=== PATIENT | male | born 1970 | race Caucasian/White ===

== ENCOUNTER → 2016-08-01 | Outpatient (CLI) | payer BC ==
--- NOTE | 2016-08-01 13:10 | Diagnostic Imaging Report ---
INDICATION: Bilateral hand pain. Previous history of surgery. Comparison with 04/01/2009. FINDINGS: Right: There has been partial trapeziectomy at the right first metacarpocarpal joint. 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 Remainder of the wrist and hand shows very little change. Some osteoarthritic change noted along the first metacarpocarpal joint as well as the interphalangeal joints. Radiocarpal joint appears normal. Left: There has been trapeziectomy with interposition ligament reconstruction with anchor present along the base of the first metacarpal. Moderate degenerative changes are noted. The interphalangeal joints are well preserved. MP joints are well preserved. Radiocarpal joint appears mildly degenerated. IMPRESSION: 1. Bilateral first metacarpocarpal surgery as described with mild progressive degenerative changes noted since previous exam. Dictated by: Dictated on workstation # [id number]
== END ==
LOC: LAB 12:18
PROVIDERS: ATTEND Emergency Medicine
DX: M79.642 Pain in left hand (principal); M79.641 Pain in right hand; Z98.890 Other specified postprocedural states

== ENCOUNTER → 2016-08-02 | Outpatient (CLI) | payer BC ==
[2016-08-02 15:15] LABS: MEAN CORPUSCULAR HEMOGLOBIN 30.7 PG (26.0-34.0); MEAN CORPUSCULAR HGB CONC 33.2 g/dL (31.0-37.0); MEAN CORPUSCULAR VOLUME 92 FL (80-100); MEAN PLATELET VOLUME 9.6 FL (6.0-9.5); PLATELET COUNT 230 10^3uL (150-450)
[2016-08-02 15:46] LABS: ALBUMIN 4.3 g/dL (3.4-5.0); ANION GAP 12.7 MEQ/L (3-15); CALCULATED IONIZED CALCIUM 3.8 mg/dL (3.8-4.6); TOTAL PROTEIN 7.6 g/dL (6.4-8.5)
[2016-08-02 15:57] LABS: BAND NEUTROPHILS % 0 % (0-6); EOSINOPHILS % 5 % (0-4); LYMPHOCYTES # 2.4 #; MONOCYTES # 0.3 #; MONOCYTES % 9 % (3-11); RBC MORPH NORMAL (NORMAL); SEGMENTED NEUTROPHILS % 23 % (51-67); TOTAL CELLS COUNTED 100
[2016-08-02 15:58] LABS: ERYTHROCYTE SEDIMENTATION RT* 8 mm/hr (0-12)
== END ==
LOC: LAB 14:58
PROVIDERS: ATTEND Emergency Medicine
DX: Z00.00 Encounter for general adult medical examination without abnormal findings (principal); M79.642 Pain in left hand; M79.641 Pain in right hand
CPT/HCPCS: 36415; 80053; 80061; 84443; 85025; 85652; 86140; 86431